=== PATIENT | male | born 1975 | race African-American/Black ===

== ENCOUNTER 2019-05-15 20:25 | Emergency (ER) | payer SELFPAY ==
[~2019-05-15] VITALS: Ht 160 cm; Wt 63.5 kg
[2019-05-15 20:40] VITALS: BP 140/95
[2019-05-15] MEDS ORDERED: LIDOCAINE 1%/EPI 1:100,000 20 ML VIAL. INJ ONE (21:45)
[2019-05-15] MEDS ORDERED: CLIN150C14 PO (22:10)
--- NOTE | 2019-05-15 22:10 | PHYS DOC ---
Past Medical History Past Medical History: Migraines (ELISA VASQUEZ APRN) Past Surgical History: No Surgical History (ELISA VASQUEZ APRN) Additional Information: 1-2 black and milds/ day Alcohol Use: None Drug Use: None (ELISA VASQUEZ APRN) Adult General Chief Complaint Chief Complaint: ABSCESS HPI HPI Patient is a 44 year old male who presents to the emergency department with co mplaints of a swollen, tender area to the left lower jaw for the last 3 days. Patient denies any fever, sore throat, ear pain, dental pain, or cough. Patient states he was combing his [place] when he first realized the tender area. He denies any drainage or bleeding from the site. (ELISA VASQUEZ APRN) Review of Systems Review of Systems Constitutional: Denies fever or chills [] HENT: Denies nasal congestion or sore throat; see history of present illness [] Respiratory: Denies cough or shortness of breath [] Cardiovascular: No additional information not addressed in HPI [] GI: Denies abdominal pain, nausea, or vomiting Musculoskeletal: Denies joint pain [] Integument: See history of present illness Neurologic: Denies headache, focal weakness or sensory changes [] (ELISA VASQUEZ APRN) Current Medications Current Medications Current Medications Medications (Trade) Dose Ordered Sig/Usha Start Time Stop Time Status Last Admin Dose Admin Lidocaine/ Epinephrine (LIDOCAINE 1%-EPI 1:100,000 Multi-Dose) 10 ml 1X ONCE 05/15/19 21:45 05/15/19 21:46 DC 05/15/19 21:53 10 ML (JUNG RAY DO) Allergies Allergies Allergies Coded Allergies Type Severity Reaction Last Updated Verified No Known Drug Allergies 05/15/19 No (JUNG RAY DO) Physical Exam Physical Exam Constitutional: Well developed, well nourished, no acute distress, non-toxic appearance. [] HENT: Normocephalic, atraumatic, bilateral external ears normal, nose normal. [] Eyes: conjunctiva normal, no discharge. [] Neck: Normal range of motion, supple, no stridor. [] Lungs & Thorax: Respirations even and unlabored, no retractions, no respiratory distress Skin: Warm, dry; 3 cm diameter fluctuant abscess noted to left lower jaw no bleeding or drainage present, skin is noted to be warm, tender, and erythemic at the affected site Extremities: No cyanosis, ROM intact Neurologic: Alert and oriented X 3, no focal deficits noted. [] Psychologic: Affect normal, judgement normal, mood normal. [] (ELISA VASQUEZ APRN) Current Patient Data Vital Signs Vital Signs Date Time Temp Pulse Resp B/P (MAP) Pulse Ox O2 Delivery O2 Flow Rate FiO2 05/15/19 20:40 99.2 83 24 140/95 (110) 98 99.2 (JUNG RAY DO) EKG EKG [] (ELISA VASQUEZ APRN) Radiology/Procedures Radiology/Procedures [] (ELISA VASQUEZ APRN) Course & Med Decision Making Course & Med Decision Making Pertinent Labs and Imaging studies reviewed. (See chart for details) dx: Cutaneous abscess of face Site was I&D as described in procedures. Prescription was written for clindamycin. Instructed to return to the ER in 48 hours for wound recheck and packing removal. Patient verbalized an understanding of home care, medications, follow-up, and return to ED instructions and was in agreement with the plan of care. [] (ELISA VASQUEZ APRN) Dragon Disclaimer Dragon Disclaimer This electronic medical record was generated, in whole or in part, using a voice recognition dictation system. (ELISA VASQUEZ APRN) Departure Departure Impression: Primary Impression: Cutaneous abscess of face Disposition: HOME, SELF-CARE Condition: STABLE Referrals: NO PCP (PCP) Patient Instructions: Abscess, Care After Additional Instructions: Fill the prescription and take as directed. Tylenol or ibuprofen as needed for pain. Return to the ER in 48 hours for wound recheck and packing removal. Scripts Clindamycin Hcl (CLINDAMYCIN HCL) 150 Mg Capsule 450 MG PO TID for 7 Days, #63 CAP 0 Refills Prov: ELISA VASQUEZ APRN 05/15/19 Incision and Drainage Incision and Drainage : Site: lower left face Blade Size: 11 I & D Procedure: sterile drapes applied, sterile dressing applied, gauze wick placed (1/4" sterile gauze) Progress Site was cleansed with chlorhexidine, 2 ml of 1% lidocaine with epi was injected into the site. An 11 blade scalpel was used to make a small incision over the fluctuant area. A large amount of bloody pus was expressed. The site was then packed with sterile quarter-inch gauze. Patient tolerated the procedure well. (ELISA VASQUEZ APRN) Attending Signature Attending Signature I have reviewed the PA/[employer]PER[employer]'s note and plan of care. I was available for consultation as needed during the patient's visit in the emergency department. I agree with the clinical impression, plan, and disposition. (JUNG RAY DO) ELISA VASQUEZ APRN May 15, 2019 22:10 JUNG RAY DO May 16, 2019 04:54
== END 2019-05-15 22:17 | disposition home or self-care (01) ==
LOC: ER 20:25
DX: L02.01 Cutaneous abscess of face (principal); G43.909 Migraine, unspecified, not intractable, without status migrainosus; F17.210 Nicotine dependence, cigarettes, uncomplicated
CPT/HCPCS: 10060; 99283; J3490

== ENCOUNTER 2019-05-17 13:05 | Emergency (ER) | payer SELFPAY ==
[~2019-05-17] VITALS: Ht 160 cm; Wt 63.5 kg
[~2019-05-17 13:05] MED LIST: CLIN150C14 PO
[2019-05-17 13:30] VITALS: BP 107/61
--- NOTE | 2019-05-17 14:06 | PHYS DOC ---
Past Medical History Past Medical History: Migraines Past Surgical History: No Surgical History Additional Information: 2-3 black and milds/ day Alcohol Use: None Drug Use: None Adult General Chief Complaint Chief Complaint: WOUND CHECK [facility] Patient is a 44 year old male who presents with came in on May 15 with a left lower jaw abscess. At that time the abscess was reported to be 3 cm in diameter, warm, tender, red. Patient was afebrile at 99.2 at that time putting to documentation. Patient states he is here today for a wound recheck and is currently taking clindamycin as he is prescribed. Patient continues to be afebrile and states that the pain and redness have gotten better and it is shrinking in size. Patient states that it is still draining. Patient rates his pain a 0 out of 10. Review of Systems Review of Systems Constitutional: Denies fever or chills [] Eyes: Denies change in visual acuity, redness, or eye pain [] HENT: Denies nasal congestion or sore throat [] Respiratory: Denies cough or shortness of breath [] Cardiovascular: No additional information not addressed in HPI [] GI: Denies abdominal pain, nausea, vomiting, bloody stools or diarrhea [] : Denies dysuria or hematuria [] Musculoskeletal: Denies back pain or joint pain [] Integument: Left lower jaw abscess. Denies rash or skin lesions [] Neurologic: Denies headache, focal weakness or sensory changes [] All other systems were reviewed and found to be within normal limits, except as documented in this note. Allergies Allergies Allergies Coded Allergies Type Severity Reaction Last Updated Verified No Known Drug Allergies 05/15/19 No Physical Exam Physical Exam Constitutional: Well developed, well nourished, no acute distress, non-toxic appearance. [] HENT: Normocephalic, atraumatic, bilateral external ears normal, oropharynx moist, no oral exudates, nose normal. [] Eyes: PERRLA, EOMI, conjunctiva normal, no discharge. [] Neck: Normal range of motion, no tenderness, supple, no stridor. [] Cardiovascular:Heart rate regular rhythm, no murmur [] Lungs & Thorax: Bilateral breath sounds clear to auscultation [] Abdomen: Bowel sounds normal, soft, no tenderness, no masses, no pulsatile masses. [] Skin: Left lower jaw subcutaneous abscess, open and draining scant yellow clear drainage. Slight erythema noted. Warm, dry, no erythema, no rash. [] Back: No tenderness, no CVA tenderness. [] Extremities: No tenderness, no cyanosis, no clubbing, ROM intact, no edema. [] Neurologic: Alert and oriented X 3, normal motor function, normal sensory function, no focal deficits noted. [] Psychologic: Affect normal, judgement normal, mood normal. [] Current Patient Data Vital Signs Vital Signs Date Time Temp Pulse Resp B/P (MAP) Pulse Ox O2 Delivery O2 Flow Rate FiO2 05/17/19 13:30 98.6 63 18 107/61 (76) 98 Room Air 98.6 EKG EKG [] Radiology/Procedures Radiology/Procedures [] Course & Med Decision Making Course & Med Decision Making Patient is a 44 year old male who presents with came in on May 15 with a left lower jaw abscess. At that time the abscess was reported to be 3 cm in diameter, warm, tender, red. Patient was afebrile at 99.2 at that time putting to documentation. Patient states he is here today for a wound recheck and is currently taking clindamycin as he is prescribed. Patient continues to be afebrile and states that the pain and redness have gotten better and it is shrinking in size. Patient states that it is still draining. Patient rates his pain a 0 out of 10. The area remains fluctuant and draining clear scant fluid. Patient states it's only slightly tender if it's a bump but other than that the pain is much better. The area has slight redness but it is not hot to touch. Patient states is not tender when I touch the area. He is afebrile. Patient states that he has noticed it is not draining as much. I told the patient that I can open it back up to see if I can drain it more in the patient refuses at this time. Patient states that he would like to continue the antibiotics and see if it continues to shrink and get better on its own. Patient is told to return in 48 hours for a recheck and that at that time it may need to be opened again. Patient is told to come in sooner if he begins running a fever or has increased pain. The area is 2.5 cm at this time so it has shrink slightly. Again it is stressed to patient that he should return in 48 hours for a recheck of the wound to make sure it is getting better and at that time it will probably need to be reopened if it is not getting better. Patient agrees to this discharge plan. Dragon Disclaimer Dragon Disclaimer This electronic medical record was generated, in whole or in part, using a voice recognition dictation system. Departure Departure Impression: Primary Impression: Encounter for wound re-check Disposition: HOME, SELF-CARE Condition: STABLE Referrals: NO PCP (PCP) Patient Instructions: Abscess, Abscess, Care After Additional Instructions: Return in 48 hours for a wound recheck. Continue taking Clindamycin. MARINA CHOE CHARCOAL KILN BURNER May 17, 2019 14:06
== END 2019-05-17 14:08 | disposition home or self-care (01) ==
LOC: ER 13:05
DX: M27.2 Inflammatory conditions of jaws (principal); G43.909 Migraine, unspecified, not intractable, without status migrainosus; F17.210 Nicotine dependence, cigarettes, uncomplicated
CPT/HCPCS: 99281